=== PATIENT | female | born 1980 | race Caucasian/White ===

== ENCOUNTER 2018-03-18 14:31 | Emergency (ER) | payer BC ==
[~2018-03-18] VITALS: Ht 160 cm; Wt 54.2 kg
[2018-03-18 14:55] VITALS: TEMP 36.7; Ht 160 cm; Wt 54.2 kg
[2018-03-18] MEDS ORDERED: DiphenhydrAMINE HCL 50 MG/ML VIAL IV STA (15:04)
[2018-03-18] MEDS ORDERED: SODIUM CHLORIDE 0.9% 1000ML 2,000 ML IV STA (15:04)
[2018-03-18] MEDS ORDERED: METOCLOPRAMIDE HCL INJ 5 MG/ML 2 ML VIAL IV STA (15:04)
--- NOTE | 2018-03-18 15:38 | DIAGNOSTIC IMAGING REPORT ---
CHEST ONE VIEW PORTABLE CLINICAL HISTORY: Pain, radiating to the abdomen. COMPARISON STUDY: No previous studies for comparison. FINDINGS: The cardiac and mediastinal contours are normal. There is no evidence of focal pulmonary consolidation. There is no evidence of failure. No pleural effusions are visualized.[ No free intraperitoneal air is visualized. IMPRESSION: No active disease in the chest. Electronically signed by: Thomas Kent M.D. 03/18/2018 3:37 PM Dictated Date/Time: 03/18/2018 3:36 PM
[2018-03-18 15:49] LABS: BASO % 0.4 %; BASO ABS # 0.03 K/uL (0-0.2); EOS % 3.1 %; EOS ABS # 0.21 K/uL (0-0.5); HEMATOCRIT 45.9 % (37-47); HEMOGLOBIN 15.3 g/dL (12.0-16.0); IG# 0.01 K/uL (0.00-0.02); LYMPH % 25.1 %; MEAN CELL VOLUME 92.7 fL (80-100); MEAN CORPUSCULAR HEMOGLOBIN 30.9 pg (25-34); MEAN CORPUSCULAR HGB CONC 33.3 g/dl (32-36); MONO % 7.7 %; MONO ABS # 0.52 K/uL (0.11-0.59); NEUT % 63.6 %; NEUT ABS # 4.29 K/uL (1.4-6.5); PLATELET COUNT 320 K/uL (130-400); RED CELL DISTRIBUTION WIDTH SD 44.2 fL (36.4-46.3); WHITE BLOOD COUNT 6.76 K/uL (4.8-10.8)
[2018-03-18 16:15] LABS: ALT/SGPT 15 U/L (12-78); AST/SGOT 10 U/L (15-37); BLOOD UREA NITROGEN 15 mg/dl (7-18); CALCIUM 9.1 mg/dl (8.5-10.1); CARBON DIOXIDE 29 mmol/L (21-32); CREATININE 0.83 mg/dl (0.60-1.20); GLUCOSE 83 mg/dl (70-99); LIPASE 113 U/L (73-393); POTASSIUM 3.8 mmol/L (3.5-5.1); SODIUM 139 mmol/L (136-145)
[2018-03-18 16:18] LABS: ALKALINE PHOSPHATASE 91 U/L (45-117); TOTAL PROTEIN 7.9 gm/dl (6.4-8.2)
[2018-03-18 16:30] VITALS: BP 94/62; PULSE 66; O2SAT 99
[2018-03-18] MEDS ORDERED: CARB1SOL8 OTL (16:56)
[2018-03-18] MEDS ORDERED: MECL1TAB42 PO (16:56)
[2018-03-18] MEDS ORDERED: ONDA4TAB10 SL (16:58)
--- NOTE | 2018-03-18 16:58 | EMERGENCY ROOM VISIT NOTE ---
History Report prepared by Jimenez: Juwan Vann Under the Supervision of: Dr. Zafar Norman M.D. First contact with patient: 14:59 Chief Complaint: DIZZY Stated Complaint: DIZZINESS,WEAK History of Present Illness The patient is a 37 year old female who presents to the Emergency Room with complaints of constant dizziness that began Lex, 2 days ago. The patient describes her dizziness as "the room spinning." Her dizziness is worsened by rotating her head from [id number]. The patient states that she does have a headache, and feels like "my eyes are moving side to side." She denies any sensation of pressure in her ears, or urinary symptoms. She did note that she felt symptoms of a common cold 3 weeks ago, these symptoms have resolved. The patient has no history of dizziness/vertigo. Source of History: patient Onset: 2 days ago Position: head Quality: other (Dizziness - Room spinning, headache) Timing: constant Modifying Factors (Worsening): other (moving head [id number]) Associated Symptoms: + headache Review of Systems See HPI for pertinent positives and negatives. A total of ten systems were reviewed and were otherwise negative. Past Medical & Surgical The patient states she has no medical problems Social History Smoking Status: Never Smoker Drug Use: none Occupation Status: employed Current/Historical Medications Scheduled Carbamide Peroxide (Otic) (Debrox), 5 DROPS OTL BID Ondasetron Odt (Zofran Odt), 4 MG SL Q6H Scheduled PRN Meclizine Hcl (Meclizine Hcl), 25 MG PO TID PRN for Dizziness Allergies Coded Allergies: No Known Allergies (Unverified , 03/18/18) Physical Exam Vital Signs Date Time Temp Pulse Resp B/P (MAP) Pulse Ox O2 Delivery O2 Flow Rate FiO2 03/18/18 16:30 66 18 94/62 99 Room Air 03/18/18 14:55 36.7 101 18 120/83 97 Room Air Physical Exam GENERAL: Awake, alert, uncomfortable-appearing, in no distress HENT: Normocephalic, atraumatic. Dry MM EYES: Normal conjunctiva. Sclera non-icteric. There is unilateral nystagmus towards the left. Symptoms are reproducible with head movement. NECK: Supple. No nuchal rigidity. FROM. No JVD. RESPIRATORY: Clear to auscultation. CARDIAC: Regular rate, normal rhythm. Extremities warm and well perfused. Pulses equal. ABDOMEN: Soft, non-distended. No tenderness to palpation. No rebound or guarding. No masses. RECTAL: Deferred. MUSCULOSKELETAL: Chest examination reveals no tenderness. The back is symmetrical on inspection without obvious abnormality. There is no CVA tenderness to palpation. No joint edema. LOWER EXTREMITIES: Calves are equal size bilaterally and non-tender. No edema. No discoloration. NEURO: Normal sensorium. No sensory or motor deficits noted. normal cerebellar function with [id number]-yx-[id number], alternating palms, exjt-ug-[id number] SKIN: No rash or jaundice noted. Medical Decision & Procedures ER Provider Diagnostic Interpretation: Radiology results as stated below per my review and radiologist interpretation: CHEST ONE VIEW PORTABLE CLINICAL HISTORY: Pain, radiating to the abdomen. COMPARISON STUDY: No previous studies for comparison. FINDINGS: The cardiac and mediastinal contours are normal. There is no evidence of focal pulmonary consolidation. There is no evidence of failure. No pleural effusions are visualized.[ No free intraperitoneal air is visualized. IMPRESSION: No active disease in the chest. Electronically signed by: Thomas Kent M.D. 03/18/2018 3:37 PM Dictated Date/Time: 03/18/2018 3:36 PM Laboratory Results 03/18/18 15:15 Red Blood Count 4.95, Mean Corpuscular Volume 92.7, Mean Corpuscular Hemoglobin 30.9, Mean Corpuscular Hemoglobin Concent 33.3, Mean Platelet Volume 10.0, Neutrophils (%) (Auto) 63.6, Lymphocytes (%) (Auto) 25.1, Monocytes (%) (Auto) 7.7, Eosinophils (%) (Auto) 3.1, Basophils (%) (Auto) 0.4, Neutrophils # (Auto) 4.29, Lymphocytes # (Auto) 1.70, Monocytes # (Auto) 0.52, Eosinophils # (Auto) 0.21, Basophils # (Auto) 0.03 03/18/18 15:15 Test 03/18/18 15:13 03/18/18 15:15 Urine Color YELLOW Urine Appearance CLEAR (CLEAR) Urine pH 6.5 (4.5-7.5) Urine Specific [place] 1.026 (1.000-1.030) Urine Protein NEG (NEG) Urine Glucose (UA) NEG (NEG) Urine Ketones TRACE (NEG) Urine Occult Blood 2+ (NEG) Urine Nitrite NEG (NEG) Urine Bilirubin NEG (NEG) Urine Urobilinogen NEG (NEG) Urine Leukocyte Esterase TRACE (NEG) Urine WBC (Auto) 5-10 /hpf (0-5) Urine RBC (Auto) 0-4 /hpf (0-4) Urine Hyaline Casts (Auto) 1-5 /lpf (0-5) Urine Epithelial Cells (Auto) >30 /lpf (0-5) Urine Bacteria (Auto) 1+ (NEG) Urine Test NEG (NEG) White Blood Count 6.76 K/uL (4.8-10.8) Red Blood Count 4.95 M/uL (4.2-5.4) Hemoglobin 15.3 g/dL (12.0-16.0) Hematocrit 45.9 % (37-47) Mean Corpuscular Volume 92.7 fL (80-100) Mean Corpuscular Hemoglobin 30.9 pg (25-34) Mean Corpuscular Hemoglobin Concent 33.3 g/dl (32-36) Platelet Count 320 K/uL (130-400) Mean Platelet Volume 10.0 fL (7.4-10.4) Neutrophils (%) (Auto) 63.6 % Lymphocytes (%) (Auto) 25.1 % Monocytes (%) (Auto) 7.7 % Eosinophils (%) (Auto) 3.1 % Basophils (%) (Auto) 0.4 % Neutrophils # (Auto) 4.29 K/uL (1.4-6.5) Lymphocytes # (Auto) 1.70 K/uL (1.2-3.4) Monocytes # (Auto) 0.52 K/uL (0.11-0.59) Eosinophils # (Auto) 0.21 K/uL (0-0.5) Basophils # (Auto) 0.03 K/uL (0-0.2) RDW Standard Deviation 44.2 fL (36.4-46.3) RDW Coefficient of Variation 13.0 % (11.5-14.5) Immature Granulocyte % (Auto) 0.1 % Immature Granulocyte # (Auto) 0.01 K/uL (0.00-0.02) Anion Gap 3.0 mmol/L (3-11) Est Creatinine Clear Calc Drug Dose 76.7 ml/min Estimated GFR () 104.4 Estimated GFR (Non- 90.1 BUN/Creatinine Ratio 18.2 (10-20) Calcium Level 9.1 mg/dl (8.5-10.1) Total Bilirubin 0.4 mg/dl (0.2-1) Direct Bilirubin < 0.1 mg/dl (0-0.2) Aspartate Amino Transf (AST/SGOT) 10 U/L (15-37) Alanine Aminotransferase (ALT/SGPT) 15 U/L (12-78) Alkaline Phosphatase 91 U/L (45-117) Total Protein 7.9 gm/dl (6.4-8.2) Albumin 4.0 gm/dl (3.4-5.0) Lipase 113 U/L (73-393) Laboratory results reviewed by me Medications Administered Medications (Trade) Dose Ordered Sig/Gino Route Start Time Stop Time Status Last Admin Dose Admin Sodium Chloride 2,000 ml @ 999 mls/hr Q2H1M STAT IV 03/18/18 15:04 03/18/18 17:04 DC 03/18/18 15:04 999 MLS/HR Metoclopramide HCl (Reglan Inj) 10 mg NOW STAT IV 03/18/18 15:04 03/18/18 15:06 DC 03/18/18 15:04 10 MG Diphenhydramine HCl (Benadryl Inj) 25 mg NOW STAT IV 03/18/18 15:04 03/18/18 15:06 DC 03/18/18 15:26 25 MG ECG Per My Interpretation Indication: other (Dizzy) Rate (beats per minute): 68 Rhythm: normal sinus Findings: other (Normal axis, No CARLYN/STD) ED Course 1503: The patient was evaluated in room B5. A complete history and physical exam was performed. 1504: Ordered Benadryl 25 mg IV, Reglan 10 mg IV, Sodium Chloride 2000 mL @ 999 mL/hr IV. 1703: I reevaluated the patient. Discussed results and discharge instructions: She verbalized understanding and agreement. The patient is ready for discharge. Medical Decision I reviewed the patient's past medical history, medications, and the nursing notes as described above. Differential diagnosis: Etiologies such as benign positional vertigo, dehydration, hypovolemia, anemia, tumor, infection, hypoglycemia, electrolyte abnormalities, cardiac sources, intracerebral event, toxicologic, neurologic, as well as others were entertained. The patient is a 37-year-old woman who presents emergency department with vertigo that began 2 days ago per hpi. On arrival the patient is uncomfortable but no acute distress, afebrile stable vital signs. On exam, the patient exhibits unilateral nystagmus to the left. Symptoms are reproducible with head movements. The patient does also have some moderate cerumen impaction in the left EAC. Otherwise, the patient is neurologically intact includingnormal cerebellar function with bsiebe-ob-eiln, alternating palms, rqjm-lj-[id number]. EKG unremarkable. Labs unremarkable including WBC within normal limits. Chest x- ray negative. Patient was given IV fluids with Reglan and Benadryl with resolution of her symptoms. Subsequently able to ambulate without difficulty. Given improvement with treatment in this otherwise healthy 37-year-old. Symptoms most consistent with peripheral etiology.Plan for outpatient follow- up. Given Rx for meclizine and Debrox. Findings and plan for follow-up reviewed with patient. Patient agreeable and d/c'd per discharge instructions. Medication Reconcilliation Current Medication List: was personally reviewed by me Blood Pressure Screening Patient's blood pressure: Low blood pressure Impression Primary Impression: Vertigo Scribe Attestation The scribe's documentation has been prepared under my direction and personally reviewed by me in its entirety. I confirm that the note above accurately reflects all work, treatment, procedures, and medical decision making performed by me. Departure Information Dispostion Home / Self-Care Prescriptions Ondasetron Odt (ZOFRAN ODT) 4 Mg Tab 4 MG SL Q6H for Nausea, #10 TAB Prov: Zafar Norman M.D. 03/18/18 Carbamide Peroxide (Otic) (DEBROX) 6.5 % [place] 5 DROPS OTL BID, #15 ML Prov: Zafar Norman M.D. 03/18/18 Meclizine Hcl (MECLIZINE HCL) 25 Mg Tab 25 MG PO TID Y for Dizziness, #21 TAB Prov: Zafar Norman M.D. 03/18/18 Patient Instructions ED Vertigo Unspecified, My [facility] Additional Instructions Please follow up with and establish a primary care physician in the next week for re-evaluation. Your symptoms are most consistent with vertigo. Otherwise, your exam, chest xray, and lab results did not show signs of an emergent condition at this time. Meclizine as needed as directed. Debrox as directed for left ear cerumen impaction. Zofran as needed for nausea. Drink plenty of fluids to ensure hydration. Return to the emergency department for worsening symptoms as described in the accompanying instructions.
== END 2018-03-18 17:00 | disposition home or self-care (01) ==
LOC: C.EDB 14:33
DX: R42 Dizziness and giddiness (principal)